=== PATIENT | male | born 1995 | race African-American/Black ===

== ENCOUNTER 2021-02-05 20:30 | Emergency (ER) | payer OTHER ==
[~2021-02-05] VITALS: Ht 182.9 cm; Wt 78.9 kg
--- NOTE | 2021-02-05 21:34 | REPVR ---
PROCEDURE INFORMATION: Exam: XR Right Hand Exam date and time: 02/05/2021 9:05 PM Age: 25 years old Clinical indication: Finger(s); Right; Patient HX: 1st digit pain; Additional info: Injured playing basketball TECHNIQUE: Imaging protocol: XR Right hand. Views: 3 or more views. COMPARISON: No relevant prior studies available. FINDINGS: Bones/joints: Acute fracture distal phalanx of the thumb. Otherwise unremarkable. Soft tissues: Normal. IMPRESSION: Acute fracture distal phalanx of the thumb. Electronically signed by: Kash Franco On 02/05/2021 21:34:00 PM
[2021-02-06] MEDS ORDERED: BOOSTRIX/ADACEL VACCINE (DIPHTH/PERTUSS/ACELL/TETANUS) 0.5ML SYR IM ONE (03:00)
[2021-02-06] MEDS ORDERED: ceFAZolin SOD 2 GM in IV 1 EA IV ONE (03:05)
[2021-02-06] MEDS ORDERED: PERCOCET 5MG/325MG TAB PO ONE (03:15)
--- OUTSIDE RECORDS SUMMARY | 2021-02-06 03:15 | CCD ---
Author Author [facility] Organization [facility] Address Unknown Phone Unavailable Support Name Relationship Address Phone [employer] Next Of Kin [address] [place] [address] Unavailable RADHA, (SSG) ALEXSANDER Next Of Kin [address] [place] [address] Re-disclosure Warning The records that you are about to access may contain information from federally-assisted alcohol or drug abuse programs. If such information is present, then the following federally mandated warning applies: This information has been disclosed to you from records protected by federal confidentiality rules (42 CFR part 2). The federal rules prohibit you from making any further disclosure of this information unless further disclosure is expressly permitted by the written consent of the person to whom it pertains or as otherwise permitted by 42 CFR part 2. A general authorization for the release of medical or other information is NOT sufficient for this purpose. The Federal rules restrict any use of the information to criminally investigate or prosecute any alcohol or drug abuse patient.The records that you are about to access may contain highly sensitive health information, the redisclosure of which is protected by Article 27-F of the [facility] Public Health law. If you continue you may have access to information: Regarding HIV / AIDS; Provided by facilities licensed or operated by the [facility] Office of Mental Health; or Provided by the [facility] Office for People With Developmental Disabilities. If such information is present, then the following [facility] mandated warning applies: This information has been disclosed to you from confidential records which are protected by state law. State law prohibits you from making any further disclosure of this information without the specific written consent of the person to whom it pertains, or as otherwise permitted by law. Any unauthorized further disclosure in violation of state law may result in a fine or detention sentence or both. A general authorization for the release of medical or other information is NOT sufficient authorization for further disc losure. Medications No Information Insurance Providers Payer name Policy type / Coverage type Policy ID Covered alliance party ID Covered alliance party's relationship to mc Policy Mc Plan Information [facility] [employer] [id number] Problems, Conditions, and Diagnoses No Information Surgeries/Procedures No Information Results No Information Social History No Information
[2021-02-06 05:29] LABS: RSV AMPLIFICATION NEGATIVE (NEGATIVE)
[2021-02-06 06:35] VITALS: BP 124/70
--- NOTE | 2021-02-06 08:35 | CR ---
ORTHOPEDIC CONSULTATION DATE: 02/06/2021 CHIEF COMPLAINT: Right open distal phalanx fracture. HISTORY OF PRESENT ILLNESS: I was called last night at approximately 2:54 a.m. This patient was apparently playing basketball. I was called by the [facility] application security engineer to the [facility] ED. This was on 02/06/2021 at 2:54 a.m. Apparently, the patient was playing basketball and ran into someone else, sustained an open distal phalanx fracture. Per the QMP, the physical exam reveals an open injury to the distal phalanx at the base of the nailbed. Radiographs are reviewed of the right hand and revealed an oblique fracture of the mid aspect of distal phalanx of right thumb. ASSESSMENT AND PLAN: This is a 25-year-old man with a nailbed injury and open fracture of the right thumb. I recommend transfer to a tertiary care center that has a hand specialist availability, covering the wound with wet gauze, IV Ancef and antibiotics as well as tetanus up-to-date as this will likely need emergent debridement, repair of the nail bed and possible tendon repair as well as open reduction internal fixation of the fragment by a hand specialist trained surgeon. The QMP understood and was in agreement with the plan and had no further questions.
== END 2021-02-06 06:41 | disposition short-term general hospital (02) ==
LOC: M ED 20:30
DX: S62.524B Nondisplaced fracture of distal phalanx of right thumb, initial encounter for open fracture (principal); W50.0XXA Accidental hit or strike by another person, initial encounter; Y92.9 Unspecified place or not applicable; Y93.67 Activity, basketball; Y99.8 Other external cause status